=== PATIENT | female | born 2000 | race Caucasian/White ===

== ENCOUNTER 2022-12-23 03:11 | Emergency (ER) | payer SELFPAY ==
[2022-12-23 03:27] LABS: COLOR,URINE BROWN; GLUCOSE,URINE NEGATIVE (NEGATIVE); KETONES,URINE NEGATIVE (NEGATIVE); LEUKOCYTE ESTERASE,URINE TRACE (NEGATIVE); NITRITE,URINE POSITIVE (NEGATIVE); OCCULT BLOOD,URINE LARGE (NEGATIVE); PH,URINE 5.5 (5.0-8.0); PROTEIN,URINE 100 mg/dL (NEGATIVE); UROBILINOGEN,URINE 0.2 EU/dL (<2.0)
[2022-12-23 03:33] LABS: APPEARANCE,URINE CLOUDY; BILIRUBIN,URINE SMALL (NEGATIVE)
[2022-12-23 03:34] LABS: BACTERIA,URINE 3+ (NEGATIVE); RBC,URINE TOO NUMEROUS TO CT (0-2/HPF); WBC,URINE TO NUMEROUS TO COUNT (0-5/HPF)
[2022-12-23] MEDS ORDERED: Cephalexin 500 MG Cap PO ONE (03:47)
== END 2022-12-23 04:05 | disposition home or self-care (01) ==
LOC: MW.ED 03:11
DX: N39.0 Urinary tract infection, site not specified (principal)
CPT/HCPCS: 81001; 81025; 87086; 87088; 87186; 99283; A9270

== ENCOUNTER 2025-04-27 19:35 | Emergency (ER) | payer SELFPAY | END 2025-04-27 20:17 | disposition home or self-care (01) | LOC: MW.ED 19:35 | DX: S00.81XA Abrasion of other part of head, initial encounter (principal); Z75.3 Unavailability and inaccessibility of health-care facilities; W55.03XA Scratched by cat, initial encounter | CPT/HCPCS: 99283 ==